=== PATIENT | female | born 1935 | race Caucasian/White ===

== ENCOUNTER 2018-01-04 14:05 | Outpatient (CLI) | payer MEDICARE ==
[~2018-01-04] VITALS: Ht 160 cm; Wt 63.5 kg
[~2018-01-04 14:05] MED LIST: ACET325T38 PO; ALPR0.25 PO; BETA1TAB15 PO; CARB15DR75 OU; CRAN450T9 PO; CYAN100053 IJ; D50KC PO; DIAZ2.5K RC; DICY20TA57 PO; ESCT10T PO; FAMO-119 PO; HALO1TAB PO; IBUP-1773 PO; MELO-195 PO; MEMA10TA PO; MULT-974 PO; OMG1KC PO; PNT40TEC PO; TEMA15CA54 PO; VITA400T7 PO
[2018-01-04] MEDS ORDERED: LACTATED RINGERS 1,000 ML IV ONE ×2 (14:27→14:30)
--- NOTE | 2018-01-04 15:07 | Diagnostic Imaging Report ---
Portable erect AP chest at 2:30 Indication: Respiratory distress This exam is less than optimal as the patient is severely rotated. Even allowing for this technical factor, the appearance of the chest has worsened considerably since the prior exam of 03/20/2014 as there is now diffuse alveolar/interstitial infiltrate in the right perihilar region. The left lung base is also partially opacified by pneumonia/atelectasis and fluid. The heart itself seems stable. The mediastinum is not widened. The osseous structures are intact. Impression: The appearance of the chest has worsened significantly since the prior exam as severe bilateral pneumonia/atelectasis has developed. A followup study would be recommended for continued evaluation. Dictated by: Dictated on workstation # [id number]
[2018-01-04 15:48] VITALS: BP 108/74
== END 2018-01-04 16:30 ==
LOC: SDC 14:05
PROVIDERS: ATTEND Nurse Practitioner
DX: J18.9 Pneumonia, unspecified organism (principal); E87.0 Hyperosmolality and hypernatremia
CPT/HCPCS: 71045; 96360; 96361